=== PATIENT | female | born 1945 | race Caucasian/White ===

== ENCOUNTER → 2016-10-03 | Outpatient (CLI) | payer OTHER ==
[~2016-10-03] MED LIST: ACTOPLUS MET 151 TA2 PO; BUMEX PO; CRESTOR10 MG DOB; EXFORGE 10-1601 TAB PO; KEPPRA500 MG PO; MELATONIN 5 MG PO; SYNTHROID125 PO; TRILIPIX135 MG PO
--- NOTE | ~2016-10-03 | US98 ---
[facility] A Service of [facility] RADIOLOGY TEXT RESULTS PATIENT: CHRISTINA FLORES LOCATION: [facility] : 45 UNIT #: [id number] AGE: [address]: Juliet Fajardo SEX: F ORDER DR: [id number] [facility] [address] [place], [place] [address] [id number] O MR#: [id number] Acc #: [id number] NAME: CHRISTINA FLORES : 1945 SEX: F STUDY DATE/TIME: 10/03/2016 11:20 UNIT: [facility] ROOM: STUDY DESCRIPTION: US Pelvic Non-OB Complete Attending Physician: Juliet Fajardo A.P.R.N. Ordering Physician: Juliet Fajardo A.P.R.N. Primary Care Physician: Juliet Fajardo A.P.R.N. MEDICAL IMAGING REPORT This report is preliminary unless electronic signature is present EXAM Pelvic ultrasound. HISTORY Abdomen and pelvic pain for 3 months. TECHNIQUE Ultrasound examination of the pelvis was performed with transabdominal and endovaginal technique. FINDINGS Uterine contour is normal. No uterine mass. No endometrial thickening or a maternal fluid. The endometrium measures 3 mm in thickness. Neither ovary was visualized by transabdominal or endovaginal scanning due to bowel gas in the adnexa. No free fluid. IMPRESSION 1. The uterus is unremarkable. 2. No endometrial thickening or fluid is identified. 3. Neither ovary is visualized with bowel gas obscuring the adnexa bilaterally. Dictated by... Zhang Rivas M.D. THIS IS AN ELECTRONICALLY VERIFIED REPORT Zhang Rivas M.D. at 10/04/2016 11:19 PM AGUSTIN/richar TD: 10/03/2016 20:25 JOB #: [id number] [facility] A Service of [facility] RADIOLOGY TEXT RESULTS PATIENT: CHRISTINA FLORES LOCATION: [facility] : 45 UNIT #: [id number] AGE: [address]: Juliet Fajardo SEX: F ORDER DR: MEDICAL IMAGING REPORT Page 1 of 1 COPY
== END | disposition home or self-care (01) ==
LOC: CWCC 11:02
DX: R14.0 Abdominal distension (gaseous) (principal); F17.200 Nicotine dependence, unspecified, uncomplicated; Z79.899 Other long term (current) drug therapy
CPT/HCPCS: 76830; 76856